=== PATIENT | male | born 1960 | race Asian ===

== ENCOUNTER 2020-08-05 14:34 | Inpatient (IN) | payer MEDICAID, SELFPAY ==
[~2020-08-05] VITALS: Ht 172.7 cm; Wt 90.9 kg
--- NOTE | 2020-08-05 14:50 | NUR ---
Patient to ER bed 6 to gown for evaluation. Side rails up.
--- NOTE | 2020-08-05 15:00 | NUR ---
pt arrives from [place] for coffe ground emesis x 2. Pt has chronic liver cirrhosis. Incontinent. Nonambulatory. Abd distention noted. network security engineer placed
[2020-08-05 15:01] VITALS: BP_SYST 135
--- NOTE | 2020-08-05 15:06 | NUR ---
per SHAI pt is a DNR,
--- NOTE | 2020-08-05 15:10 | NUR ---
ER at bedside examining patient.
[2020-08-05] MEDS ORDERED: NACL 0.9% 1,000 ML IV ONE (15:30)
--- NOTE | 2020-08-05 15:30 | NUR ---
Patient transported to radiology via GURNEY, accompanied by CARTOGRAPHIC TECHNICIAN.
--- NOTE | 2020-08-05 15:43 | NUR ---
Lab at bedside to draw blood. XRay at bedside for chest
--- NOTE | 2020-08-05 15:45 | NUR ---
# 22 gauge angiocath placed to LAC. Use of asceptic technique. Opsite placed over site. Blood return noted. Blood for lab drawn from site. Flushed with 10 cc of normal saline. No evidence of infiltration noted. Patient tolerated well.
--- NOTE | 2020-08-05 16:00 | NUR ---
Medicated w/ NS 1liter, Rocephin IV, Protonix IV, and Zofran IV.
[2020-08-05 16:01] LABS: BASOPHILS # (AUTO) 0.1 K/uL (0.0-0.2); BASOPHILS % (AUTO) 0.8 % (0.0-2.0); EOSINOPHILS % (AUTO) 0.3 % (0.0-4.0); HEMATOCRIT 36.1 % (36-54); HEMOGLOBIN 11.6 g/dL (14.0-18.0); LYMPHOCYTES # (AUTO) 0.6 K/uL (1.0-5.5); LYMPHOCYTES % (AUTO) 10.1 % (20.5-51.5); MEAN CORPUSCULAR HEMOGLOBIN 29 pg (27-31); MEAN CORPUSCULAR HGB CONC 32 % (32-36); MEAN CORPUSCULAR VOLUME 91 fL (79.0-98.0); MONOCYTES # (AUTO) 0.3 K/uL (0.0-1.0); MONOCYTES % (AUTO) 5.2 % (1.7-9.3); NEUTROPHILS # (AUTO) 5.3 K/uL (1.8-7.7); NEUTROPHILS % (AUTO) 83.6 % (40.0-70.0); RED BLOOD CELL COUNT(AUTO) 3.95 MIL/uL (4.2-6.2); RED CELL DISTRIBUTION WIDTH 24.4 % (9.0-15.0); WHITE BLOOD COUNT (AUTO) 6.3 K/uL (4.8-10.8)
[2020-08-05 16:03] LABS: CALCIUM 7.5 mg/dL (8.4-11.0); CREATININE 0.84 mg/dL (0.55-1.30); POTASSIUM 3.3 mmol/L (3.5-5.1)
[2020-08-05 16:09] LABS: ALBUMIN 2.2 g/dL (3.4-4.8); TOTAL BILIRUBIN 1.5 mg/dL (0.0-1.0)
[2020-08-05 16:18] LABS: PLATELET COUNT (AUTO) 77 K/uL (130-430)
[2020-08-05 16:28] LABS: BLOOD, URINE 2+ (NEGATIVE); GLUCOSE,URINE NEGATIVE (NEGATIVE); KETONES,URINE NEGATIVE (NEGATIVE); NITRITE, URINE POSITIVE (NEGATIVE); PROTEIN URINE NEGATIVE (NEGATIVE)
[2020-08-05 16:37] LABS: BILIRUBIN,URINE NEGATIVE (NEGATIVE); CLARITY/URINE HAZY (CLEAR); COLOR,URINE AMBER (YELLOW); LEUKOCYTE ESTERASE ,URINE 1+ (NEGATIVE)
[2020-08-05 16:39] LABS: BACTERIA,URINE MODERATE /HPF (None Seen); MUCUS,URINE None Seen /LPF (None Seen)
[2020-08-05] MEDS ORDERED: cefTRIAXone 1 GM in D5W 50 ML IV ONE (17:15)
[2020-08-05] MEDS ORDERED: PANTOPRAZOLE SODIUM 40 MG/VIAL (PROTONIX) IVP ONE (17:15)
[2020-08-05] MEDS ORDERED: ONDANSETRON HCL 4 MG/2 ML VIAL IVP ONE (17:45)
[2020-08-05] MEDS ORDERED: cefTRIAXone 1 GM VIAL ONE ×2 (17:50→17:51)
--- NOTE | 2020-08-05 18:00 | NUR ---
Medication reconciliation completed with information provided by pt's medical record. Any prior medication reconciliation on file was reviewed and corrected.
[2020-08-05] MEDS ORDERED: ferrous sulfate PO (18:22)
[2020-08-05] MEDS ORDERED: PROP20TA7 PO (18:22)
[2020-08-05] MEDS ORDERED: ACET325T PO (18:22)
[2020-08-05] MEDS ORDERED: LACT10SO7 PO (18:22)
[2020-08-05] MEDS ORDERED: GLIP10TA3 PO (18:22)
[2020-08-05] MEDS ORDERED: FURO-149 PO (18:22)
[2020-08-05] MEDS ORDERED: SSNOVOLOG SUBCUT (18:22)
[2020-08-05] MEDS ORDERED: SITA100T11 PO (18:22)
[2020-08-05] MEDS ORDERED: INSU100V46 (18:22)
--- NOTE | 2020-08-05 18:25 | NUR ---
Patient will be admitted to care of Dr. Chance. Admitted to tele unit. Will go to room 118-a. Belongings list completed. Complete and up to date summary report printed. SBAR report to be given at bedside with opportunity for questions.
--- NOTE | 2020-08-05 18:30 | NUR ---
received patient from ER. patient is alert and oriented. audible wheezing. put on NC, 2 L . patient's vital is stable.denies any pain or discomfort at this time. patient's belonging is at bedside. he verbalize wants to sleep. encouraged the patient to use the call light, safety maintained. endorse to principal trainer
[2020-08-05 19:06] VITALS: BP_SYST 140
--- NOTE | 2020-08-05 19:20 | NUR ---
initial notes: Pt is in bed, alert, awake, oriented to name, birthday and place. pt has some period of confusion, legally blind, complain of vomiting and abdominal cramps. pt has iv lock to his left ac gauge 22- intact and patent. vital signs are with in normal limit. no skin breakdown. incontinent of bnb.explain to pt safety and [place] call for assistance. pt agree. call light with pt.ow bed position, side rails up x3, lock bed and bed alarm on. will monitor.
--- NOTE | 2020-08-05 20:30 | NUR ---
clean pt and gown change, reposition. needs attended.
[2020-08-05] MEDS ORDERED: KCL 20 mEq in D5/0.45NS 1000mL 1,000 ML IV ONE (20:32)
[2020-08-05] MEDS: KCL 20 mEq in D5/0.45NS 1000mL 1,000 ML IV SCH (20:39)
[2020-08-05] MEDS ORDERED: ACETAMINOPHEN 325 MG TABLET PO PRN (21:30)
--- NOTE | 2020-08-05 22:23 | NUR ---
CONSULTATION PAGED/CALLED Reason for Consultation: UPPER GI BLEED Person Who was Notified: WILLIE Consulting Physician: BONI SIMEON IS EVALUATOR TRANSFER STUDENTS Journal Entry Audit Clerk Specialty: Ordering Physician: DHIRAJ
[2020-08-05] MEDS ORDERED: PANTOPRAZOLE SODIUM 40 MG/VIAL (PROTONIX) ONE (22:48)
[2020-08-05] MEDS: PANTOPRAZOLE SODIUM 40 MG/VIAL (PROTONIX) IVP SCH (22:49)
--- NOTE | 2020-08-05 23:42 | NUR ---
pt is resting, wakes up, ask for water. stable. no pain, no nausea and vomiting. needs attended. call light in reach, safety precaution in place. will monitor.
--- NOTE | 2020-08-06 05:35 | NUR ---
pt is resting, no pain, no sob. ivf infusing well. check pt for incontinence. chux is still clean and dry, offer urinal to pt. pt refused. bladder scan >999, offer pt urinal. stated stated that he don't want to void. educate pt that he might get apple catheter, pt refused to have apple catheter.
--- NOTE | 2020-08-06 05:51 | NUR ---
Paged: Paged Dr. Chance regarding orders
[2020-08-06] MEDS: ONDANSETRON HCL 4 MG/2 ML VIAL IVP PRN ×3 (06:25→21:45)
--- NOTE | 2020-08-06 06:28 | NUR ---
dr. friend is in the unit covering for dr. derrek hayden is made aware of the pt is unable to void.
[2020-08-06 06:32] LABS: BASOPHILS % (AUTO) 0.4 % (0.0-2.0); EOSINOPHILS % (AUTO) 0.5 % (0.0-4.0); HEMATOCRIT 32.2 % (36-54); HEMOGLOBIN 10.4 g/dL (14.0-18.0); LYMPHOCYTES # (AUTO) 0.7 K/uL (1.0-5.5); LYMPHOCYTES % (AUTO) 11.7 % (20.5-51.5); MEAN CORPUSCULAR HEMOGLOBIN 29 pg (27-31); MEAN CORPUSCULAR HGB CONC 32 % (32-36); MEAN CORPUSCULAR VOLUME 91 fL (79.0-98.0); MONOCYTES # (AUTO) 0.3 K/uL (0.0-1.0); MONOCYTES % (AUTO) 5.7 % (1.7-9.3); NEUTROPHILS # (AUTO) 4.6 K/uL (1.8-7.7); NEUTROPHILS % (AUTO) 81.7 % (40.0-70.0); PLATELET COUNT (AUTO) 85 K/uL (130-430); RED BLOOD CELL COUNT(AUTO) 3.54 MIL/uL (4.2-6.2); WHITE BLOOD COUNT (AUTO) 5.6 K/uL (4.8-10.8)
[2020-08-06 06:51] LABS: CALCIUM 7.4 mg/dL (8.4-11.0); CREATININE 0.92 mg/dL (0.55-1.30); POTASSIUM 3.8 mmol/L (3.5-5.1)
--- NOTE | 2020-08-06 06:52 | NUR ---
closing: pt is resting, wakes up. reposition,complain he nauseated. no pain, not distress, stable, room air. ivf infusing well. needs attended the whole shift, call light in reach, side rails up. low bed position and alarm. will give sbar reporting to am rn.
[2020-08-06 07:29] LABS: RED CELL DISTRIBUTION WIDTH 24.6 % (9.0-15.0)
--- NOTE | 2020-08-06 08:00 | NUR ---
initial note patient is resting, easy to arouse. vital stable. denies nausea or vomiting, pain or discomfort. patient is unable to urinate. MD aware.encourage the patient to use the call light, safety maintained.
[2020-08-06 08:16] VITALS: BP_SYST 108
[2020-08-06] MEDS ORDERED: LACTULOSE 20 GM/30 ML UDC PO ONE (09:00)
--- NOTE | 2020-08-06 09:00 | NUR ---
MD rounds Doctor at bed side examine the patient. ordered apple to relieve patient's urine retention.
[2020-08-06] MEDS: PROPRANOLOL HCL 10 MG TABLET (INDERAL) PO SCH ×2 (09:36→21:42)
[2020-08-06] MEDS: FUROSEMIDE 40 MG TABLET PO SCH (09:37)
[2020-08-06] MEDS: PANTOPRAZOLE SODIUM 40 MG/VIAL (PROTONIX) IVP SCH ×2 (09:38→21:40)
[2020-08-06] MEDS: KCL 20 mEq in D5/0.45NS 1000mL 1,000 ML IV SCH ×2 (09:39→21:39)
--- NOTE | 2020-08-06 13:00 | NUR ---
round patient is resting. on room air, vital stable , no complaints of nausea, vomiting , pain or discomfort at this time. offer patient ensure. turned and repositioned. call light in reach, safety maintained.
[2020-08-06 13:23] VITALS: BP_SYST 116
--- NOTE | 2020-08-06 17:30 | NUR ---
ROUNDS PATIENT COMPLAINT OF NAUSEA, AND HAS VOMITED . GIVEN ZOFRAN. PATIENT CHANGED, AND REPOSITIONED.
[2020-08-06 18:32] VITALS: BP_SYST 123
--- NOTE | 2020-08-06 19:45 | NUR ---
CHANGE OF SHIFT; endorsed by nurse Kandi. no acute distress. schedule for paracentesis tomorrow. GI consult today. call light within reach.
[2020-08-06 21:30] VITALS: BP_SYST 146
--- NOTE | 2020-08-06 21:30 | NUR ---
NOTES: pt. checked and vomited clear drainage. linen wet and gown. VS checked. generalized edema noted and distended abdomen. schedule for paracentesis tomorrow. pt. awake and oriented. asked POSTAL SORTING OFFICER to due hs care and complete linen changed. IV infusing via left antecubital. on grocery buyer and shows sinus rhythm. apple cath to osd. call light within reach. on fall risk precaution. bed alarm on.
[2020-08-06] MEDS: cefTRIAXone 1 GM in D5W 50 ML IV SCH (21:40)
[2020-08-06] MEDS: LACTULOSE 20 GM/30 ML UDC PO SCH (21:41)
--- NOTE | 2020-08-06 22:40 | NUR ---
NOTES: BS checked 165 ,refused sliding scale coverage, said he did not eat. pt. afraid to take anything by mouth, afraid to throw up. IV Zofran given earlier. pt. comfortable and calm. IV site patent.
[2020-08-07] VITALS: BP_SYST 144
--- NOTE | 2020-08-07 00:15 | NUR ---
NOTES: pt. calm and sleeping. no further nausea nor vomiting. IVF continuous.
--- NOTE | 2020-08-07 02:30 | NUR ---
NOTES: made rounds, pt. remain sleeping. condition observed.continue to monitor.
--- NOTE | 2020-08-07 04:35 | NUR ---
NOTES: pt. awake when checked. marybeth care done ,had small soft bm. pt. able to help turn to sides, pulled up in bed with help. no further vomiting. IVF continuous. pt. is legally blind. pt. unable to use call light. bed alarm on.
[2020-08-07 06:12] LABS: BASOPHILS % (AUTO) 0.6 % (0.0-2.0); EOSINOPHILS % (AUTO) 0.4 % (0.0-4.0); HEMATOCRIT 32.9 % (36-54); HEMOGLOBIN 10.5 g/dL (14.0-18.0); LYMPHOCYTES # (AUTO) 0.7 K/uL (1.0-5.5); LYMPHOCYTES % (AUTO) 11.5 % (20.5-51.5); MEAN CORPUSCULAR HEMOGLOBIN 29 pg (27-31); MEAN CORPUSCULAR HGB CONC 32 % (32-36); MEAN CORPUSCULAR VOLUME 91 fL (79.0-98.0); MONOCYTES # (AUTO) 0.4 K/uL (0.0-1.0); MONOCYTES % (AUTO) 6.2 % (1.7-9.3); NEUTROPHILS # (AUTO) 4.8 K/uL (1.8-7.7); NEUTROPHILS % (AUTO) 81.3 % (40.0-70.0); PLATELET COUNT (AUTO) 75 K/uL (130-430); RED CELL DISTRIBUTION WIDTH 23.5 % (9.0-15.0); WHITE BLOOD COUNT (AUTO) 5.9 K/uL (4.8-10.8)
--- NOTE | 2020-08-07 06:33 | NUR ---
NOTES: called pt. sister Xochitl to get another telephone consent for paracentesis, co witness by another RN.
--- NOTE | 2020-08-07 06:44 | NUR ---
CLOSING NOTES; pt. went back to sleep, dozing on and off. IVF continuous. apple cath with dark urine output. remain swollen all over with distended abdomen. no nausea nor vomiting. schedule for paracentesis. on room air. for further care and assistance. will endorse to incoming shift. on fall risk precaution.
[2020-08-07 07:45] LABS: INR 1.1 (0.80-1.20); PROTHROMBIN TIME 11.7 SECS (9.5-12.5)
[2020-08-07 08:13] VITALS: BP_SYST 120
--- NOTE | 2020-08-07 08:25 | NUR ---
RECEIVED PT PT EATING BREAKFAST, PT IS LEGALLY BLIND BUT ABLE TO FEED HIMSELF. REFUSED TO EAT THE GRITS , STATED HE IS AFRAID HE WILL VOMIT IF HE TAKES SOLID FOOD.
[2020-08-07 08:42] LABS: ALBUMIN 1.9 g/dL (3.4-4.8); BILIRUBIN,DIRECT 0.3 mg/dL (0.0-0.3); TOTAL BILIRUBIN 1.1 mg/dL (0.0-1.0)
[2020-08-07] MEDS: PANTOPRAZOLE SODIUM 40 MG/VIAL (PROTONIX) IVP SCH ×2 (08:42→20:37)
[2020-08-07] MEDS: FUROSEMIDE 40 MG TABLET PO SCH (08:43)
[2020-08-07] MEDS: LACTULOSE 20 GM/30 ML UDC PO SCH ×2 (08:43→20:43)
[2020-08-07] MEDS: PROPRANOLOL HCL 10 MG TABLET (INDERAL) PO SCH ×2 (08:44→20:43)
--- NOTE | 2020-08-07 08:44 | NUR ---
PATIENT REFUSED SOME OF HIS AM MEDS DUE TO FEAR OF VOMITING. Addendum: 08/07/20 at 0850 by Vasquez Neff RN PT REFUSED LACTULOSE, TRAJENTA, INDERAL. EDUCATED PT ON THE IMPORTANCE OF COMPLIANCE TO MEDICATION BUT PT INSIST OF NOT TAKING THEM.
--- NOTE | 2020-08-07 10:23 | NUR ---
Late Entry DCP Notes: DESK PENS ASSEMBLER introduced self to patient at bedside. Patient was sleeping when DESK PENS ASSEMBLER entered. Patient had a heavy accent, but spoke Spanish. DESK PENS ASSEMBLER asked if he could understand her and if he wanted to continue. Patient stated he also speaks Tagalog, but understands Spanish. Patient did not make eye contact during this interview. When DESK PENS ASSEMBLER asked if patient knew where he was, patient replied appropriately. Patient also knew why he was admitted stating he had edema in his legs. Patient was calm, polite, alert and oriented X4. Patient stated he came from [place] and does not want to go back because it is too loud there. He stated he use to live with one of his sisters, Xochitl in [place]. DESK PENS ASSEMBLER asked patient if he has ever felt depressed, anxious, any mental health diagnosis to which patient stated he did not and also refused ever being suicidal. DESK PENS ASSEMBLER thanked patient for his time and told him he can go back to sleep. On 08/07/20 DESK PENS ASSEMBLER called and spoke to patients sister, Xochitl Rios ([place], ) who stated patient has to go back to [facility] as she can no longer care for patient in her home. She stated patient has her support as well as the other siblings support, Rupinder Naqvi in [place], . DESK PENS ASSEMBLER thanked her for her time. DESK PENS ASSEMBLER will remain available as needed.
--- NOTE | 2020-08-07 10:30 | NUR ---
DR WARD HERE AND SEEN PT. Addendum: 08/07/20 at 1145 by Vasquez Neff RN WRONG ENTRY. PLEASE DISREGARD THIS PT NOTES.
--- NOTE | 2020-08-07 11:26 | NUR ---
Nutrition Update Reymundo Scale 13 noted. Pt admitted for upper GI bleed. Diet: full liquid BMI: 31 kg/m2 RD to follow per nutrition care standards.
--- NOTE | 2020-08-07 11:45 | NUR ---
PARACENTESIS FLUID SAMPLE TAKEN TO LAB FOR PATHOLOGY.
[2020-08-07] MEDS: KCL 20 mEq in D5/0.45NS 1000mL 1,000 ML IV SCH (11:53)
[2020-08-07 12:00] VITALS: BP_SYST 120
[2020-08-07 15:14] LABS: BODY FLUID SOURCE/ TYPE ASCITES
[2020-08-07 15:15] LABS: APPEARANCE,SPUN,BODY FLUID CLEAR (CLEAR); BF APPEARANCE UNSPUN CLEAR (CLEAR); BODY FLUID COLOR YELLOW (LT YELLOW); BODY FLUID TOTAL VOLUME 6300 mL; MONOCYTES,BODY FLUID 58 %; NEUTROPHIL, BODY FLUID 42 %; RBC, BODY FLUID 42 /uL; WBC, BODY FLUID 70 /uL
[2020-08-07 16:00] VITALS: BP_SYST 136
[2020-08-07] MEDS: INSULIN REGULAR, HUMAN 100 UNITS/ML, 10 ML VIAL (humuLIN R) SUBCUT PRN (16:55)
[2020-08-07 20:00] VITALS: BP_SYST 119
[2020-08-07] MEDS: cefTRIAXone 1 GM in D5W 50 ML IV SCH (20:36)
--- NOTE | 2020-08-08 00:08 | NUR ---
SPOKE TO DR. MAGALLON REGARDING PATIENT'S REQUEST FOR SLEEPING MEDICATION. DOCTOR STATED "NO, IT'S NOT OKAY".
[2020-08-08] MEDS: KCL 20 mEq in D5/0.45NS 1000mL 1,000 ML IV SCH ×2 (00:37→13:30)
[2020-08-08 00:51] VITALS: BP_SYST 120
[2020-08-08 06:06] LABS: BASOPHILS % (AUTO) 0.8 % (0.0-2.0); EOSINOPHILS # (AUTO) 0.2 K/uL (0.0-0.4); EOSINOPHILS % (AUTO) 3.9 % (0.0-4.0); HEMATOCRIT 32.2 % (36-54); HEMOGLOBIN 10.4 g/dL (14.0-18.0); LYMPHOCYTES # (AUTO) 0.6 K/uL (1.0-5.5); LYMPHOCYTES % (AUTO) 14.9 % (20.5-51.5); MEAN CORPUSCULAR HEMOGLOBIN 30 pg (27-31); MEAN CORPUSCULAR HGB CONC 32 % (32-36); MEAN CORPUSCULAR VOLUME 91 fL (79.0-98.0); MONOCYTES # (AUTO) 0.3 K/uL (0.0-1.0); MONOCYTES % (AUTO) 7.4 % (1.7-9.3); NEUTROPHILS # (AUTO) 3.1 K/uL (1.8-7.7); PLATELET COUNT (AUTO) 76 K/uL (130-430); RED BLOOD CELL COUNT(AUTO) 3.53 MIL/uL (4.2-6.2); RED CELL DISTRIBUTION WIDTH 23.4 % (9.0-15.0); WHITE BLOOD COUNT (AUTO) 4.3 K/uL (4.8-10.8)
[2020-08-08 06:21] LABS: CREATININE 0.99 mg/dL (0.55-1.30); POTASSIUM 3.4 mmol/L (3.5-5.1)
--- NOTE | 2020-08-08 06:55 | NUR ---
CLOSING NOTE PATIENT IS RESTING IN BED, NO S/S OF ACUTE DISTRESS, IVF INFUSING AT ORDERED RATE, F/C IS INTACT AND DRAINING TO GRAVITY. SAFETY AND FALL PRECAUTIONS MAINTAINED. WILL ENDORSE TO DAY SHIFT RN.
[2020-08-08 07:01] LABS: CALCIUM 6.9 mg/dL (8.4-11.0)
--- NOTE | 2020-08-08 07:07 | NUR ---
CRITICAL LOW CALCIUM RECEIVED. DR. DHIRAJ MEYER. WILL ENDORSE TO DAY SHIFT RN. Addendum: 08/08/20 at 0716 by Pati Concepcion RN SPOKE TO DR. HEARN AND REPORTED CALCIUM LEVEL. NO NEW ORDERS RECEIVED.
--- NOTE | 2020-08-08 07:30 | NUR ---
Opening Note Received plan of care via sbar from endorsing RN.
[2020-08-08 08:00] VITALS: BP_SYST 113
--- NOTE | 2020-08-08 08:09 | NUR ---
Dr. Pandey at bedside. Provided patient update including Ortiz patino MD to review and place orders.
[2020-08-08] MEDS: LACTULOSE 20 GM/30 ML UDC PO SCH ×2 (09:57→22:25)
[2020-08-08] MEDS: PANTOPRAZOLE SODIUM 40 MG/VIAL (PROTONIX) IVP SCH ×2 (10:10→22:25)
[2020-08-08] MEDS: PROPRANOLOL HCL 10 MG TABLET (INDERAL) PO SCH ×2 (10:10→22:27)
[2020-08-08] MEDS: FUROSEMIDE 40 MG TABLET PO SCH (10:10)
[2020-08-08 12:00] VITALS: BP_SYST 112
--- NOTE | 2020-08-08 12:14 | NUR ---
Discharge Planning: [facility] faxed pt referral to [facility] p [phone]) DCP to follow up. Addendum: 08/08/20 at 1609 by Nola Epps DP DCP followed up with Silvina from [facility] ( [phone] p [phone]) [facility] tomorrow 08/09/2020. ERONP made CM aware. Addendum: 08/08/20 at 1614 by Nola Epps DP CM should call on Saturday08/09/2020 to confirm room before transferring per Silvina from [facility] p [phone]).
--- NOTE | 2020-08-08 12:50 | NUR ---
Called Dr. Chance and reported K of 3.4. Received orders for 40 meq PO K one time.
--- NOTE | 2020-08-08 12:56 | NUR ---
HIGH ALERT NOTE: Called Dr. Chance back at [phone] identified within the medical roster to verify physician authenticity.
[2020-08-08] MEDS ORDERED: POTASSIUM CHLORIDE 20 MEQ/PKT PACKET PO ONE (13:00)
[2020-08-08 16:33] VITALS: BP_SYST 121
[2020-08-08] MEDS: INSULIN REGULAR, HUMAN 100 UNITS/ML, 10 ML VIAL (humuLIN R) SUBCUT PRN (17:21)
--- NOTE | 2020-08-08 19:30 | NUR ---
initial notes: Pt is in bed, alert, awake, oriented to name, birthday and place. legally blind, no pain, no sob. pt has ivf infusing to right hand gauge 22-leaking. vital signs are with in normal limit. no skin breakdown. apple catheter draining by gravity. explain to pt safety and call for assistance. pt agree. call light with pt.l ow bed position, side rails up x3, lock bed and bed alarm on. will monitor. Addendum: 08/09/20 at 0255 by Heath Womack RN start new iv to right ac gauge 20 good blood return- done aseptically. pt tolerate well.
[2020-08-08 19:40] VITALS: BP_SYST 123
[2020-08-08] MEDS: cefTRIAXone 1 GM in D5W 50 ML IV SCH (22:24)
[2020-08-09] VITALS: BP_SYST 126
--- NOTE | 2020-08-09 | NUR ---
pt is sleeping, no pain, no sob, not distress. vital sign stable. needs attended, call light in reach, safety precaution in place. will monitor.
--- NOTE | 2020-08-09 01:30 | NUR ---
pt call complain his gown wet. fluid leaking form the paracentesis site. cove with abdominal pad.
[2020-08-09 06:45] LABS: EOSINOPHILS # (AUTO) 0.2 K/uL (0.0-0.4); EOSINOPHILS % (AUTO) 4.3 % (0.0-4.0); HEMATOCRIT 32.8 % (36-54); HEMOGLOBIN 10.6 g/dL (14.0-18.0); LYMPHOCYTES # (AUTO) 0.7 K/uL (1.0-5.5); LYMPHOCYTES % (AUTO) 17.6 % (20.5-51.5); MEAN CORPUSCULAR HEMOGLOBIN 29 pg (27-31); MEAN CORPUSCULAR HGB CONC 32 % (32-36); MEAN CORPUSCULAR VOLUME 90 fL (79.0-98.0); MONOCYTES # (AUTO) 0.3 K/uL (0.0-1.0); MONOCYTES % (AUTO) 6.7 % (1.7-9.3); NEUTROPHILS # (AUTO) 2.8 K/uL (1.8-7.7); NEUTROPHILS % (AUTO) 70.4 % (40.0-70.0); PLATELET COUNT (AUTO) 78 K/uL (130-430); RED BLOOD CELL COUNT(AUTO) 3.63 MIL/uL (4.2-6.2); WHITE BLOOD COUNT (AUTO) 3.9 K/uL (4.8-10.8)
--- NOTE | 2020-08-09 07:08 | NUR ---
closing: pt is resting no pain, not distress, stable. iv lock to right ac gauge 20- intact. needs attended the whole shift. will give sbar reporting to am rn.
[2020-08-09 07:29] LABS: CREATININE 0.84 mg/dL (0.55-1.30); POTASSIUM 3.3 mmol/L (3.5-5.1)
--- NOTE | 2020-08-09 07:45 | NUR ---
ASSUMPTION OF CARE: RECEIVED PT A/A/OX2, DX:RISK FOR HYPOVOLEMIA, R/T UPPER GI BLEED, AFEBRILE, VSS, NO S/S OF DISTRESS, BREATH SOUNDS ARE CLEAR, BREATHING UNLABORED, IV SITE INTACT, PATENT, NO REDNESS OR SWELLING, ORIENTED TO CALL LIGHT, PLACED WITHIN REACH, WILL CONT' TO MONITOR AND ASSESS.
--- NOTE | 2020-08-09 09:05 | NUR ---
BOAT OAR MAKER: MORNING MEDS GIVEN, PER ORDERED BY Vee, TOLERATED WELL, WILL CONT' WITH POC.
[2020-08-09] MEDS: PANTOPRAZOLE SODIUM 40 MG/VIAL (PROTONIX) IVP SCH (09:17)
[2020-08-09] MEDS: LACTULOSE 20 GM/30 ML UDC PO SCH (09:17)
[2020-08-09] MEDS: FUROSEMIDE 40 MG TABLET PO SCH (09:19)
[2020-08-09] MEDS: PROPRANOLOL HCL 10 MG TABLET (INDERAL) PO SCH (09:19)
[2020-08-09] MEDS ORDERED: POTASSIUM CHLORIDE 20 MEQ/PKT PACKET PO ONE (11:15)
--- NOTE | 2020-08-09 12:40 | NUR ---
Requested auth for admission at [facility] and auth for ambulance from [facility] gp-cannot send patient until authorizations are received.
[2020-08-09 13:06] VITALS: BP_SYST 108
--- NOTE | 2020-08-09 13:54 | NUR ---
Dietitian Recommendations Add [facility] diet to current diet order Current diet order: soft (low fiber/bland) Monitor labs (especially glucose levels) Please see nutrition assessment for details KW, RD
--- NOTE | 2020-08-09 15:20 | NUR ---
Patient accepted at [facility] room 35A. Number for report [phone]- Ambulance transport by [facility] -auth # from [facility] is [id number]. Transport time is 4 PM- Discharge disposition is 03.
[2020-08-09 15:22] LABS: SOURCE/TYPE ,BODY FLUID PARACENTESIS
--- NOTE | 2020-08-09 15:30 | NUR ---
F/C DISCONTINUED AT THIS TIME, TOLERATED WELL, WILL CONT' TO MONITOR AND ASSESS.
[2020-08-09 15:46] VITALS: BP_SYST 108
[2020-08-09 16:00] VITALS: BP_SYST 118
--- NOTE | 2020-08-09 16:30 | NUR ---
DISCHARGE: PT HAS ORDER FOR DISCHARGE TO [facility], PT'S FAMILY NOTIFIED, PT AWARE, CONDITION REMAINS STABLE, IV SITE DISCONTINUED, F/C D/C'ED, TOLERATED WILL WILL CONT' TO MONITOR AND ASSESS.
== END 2020-08-09 16:30 | DRG 253 ==
LOC: SED 14:34 → STU 17:50
PROVIDERS: ADMIT Family Medicine; ATTEND Family Medicine
PROC: 0W9G3ZZ Drainage of Peritoneal Cavity, Percutaneous Approach (ICD-10-PCS; principal; 2020-08-06)
DX: K92.2 Gastrointestinal hemorrhage, unspecified (principal); D69.6 Thrombocytopenia, unspecified; R18.8 Other ascites; E44.0 Moderate protein-calorie malnutrition; F20.9 Schizophrenia, unspecified; E11.9 Type 2 diabetes mellitus without complications; D50.0 Iron deficiency anemia secondary to blood loss (chronic); K74.60 Unspecified cirrhosis of liver; Z20.822 Contact with and (suspected) exposure to COVID-19
CPT/HCPCS: 36415; 49083; 71045; 76376; 80048; 80053; 80076; 81000; 82140; 82947; 82962; 83735; 84157; 84484; 85025; 85610-TC; 85730-TC; 87081; 87086; 88108; 89051-TC; 89060-TC; 93005; 96365; 96375; 99285; C9113; G0378; J0696; J1815; J2405; J7060